=== PATIENT | female | born 1980 | race Caucasian/White ===

== ENCOUNTER 2020-06-16 10:07 | Inpatient (IN) | payer OTHER ==
[2020-06-16] MEDS ORDERED: SODIUM CHLORIDE 0.9% 500 ML INFUS.BAG IV ONE (10:28)
[2020-06-16 10:51] VITALS: BMI 23.0
[2020-06-16 11:00] LABS: BASO % 0.6 % (0-2.0); EOS % 0.9 % (0-4.5); HEMOGLOBIN 10.9 GM/dL (10.7-15.3); LYMPH % 10.1 % (8-40); MCH 30.7 pg (25.7-33.7); MCHC 34.2 g/dl (32.0-36.0); MEAN CELL VOLUME 89.8 fl (80-96); MEAN PLT VOLUME 8.3 fl (7.5-11.1); MONO % 4.3 % (3.8-10.2); NEUT % 84.1 % (42.8-82.8); PLATELET COUNT 289 K/MM3 (134-434); RBC 3.56 M/mm3 (3.60-5.2); RDW 12.7 % (11.6-15.6); WHITE BLOOD COUNT 14.9 K/mm3 (4.0-10.0)
[2020-06-16 11:05] LABS: INR 1.07 (0.83-1.09); PROTHROMBIN TIME (PATIENT) 13.1 SEC (9.7-13.0)
[2020-06-16 11:07] LABS: ACTIVATED PTT 26.2 SECONDS (25.2-36.5)
[2020-06-16 11:22] LABS: POTASSIUM 3.8 mmol/L (3.5-5.1)
[2020-06-16 11:24] LABS: CALCIUM 8.5 mg/dL (8.5-10.1)
[2020-06-16 11:25] LABS: ALBUMIN 3.5 g/dl (3.4-5.0); BLOOD UREA NITROGEN 11.3 mg/dL (7-18)
[2020-06-16 11:28] LABS: CREATININE 0.7 mg/dL (0.55-1.3)
[2020-06-16 11:30] LABS: BILIRUBIN,TOTAL 0.3 mg/dL (0.2-1)
[2020-06-16] MEDS ORDERED: KETOROLAC TROMETHAMINE 30 MG/1 ML VIAL IM ONE (12:08)
[2020-06-16] MEDS ORDERED: METHYLERGONOVINE MALEATE 0.2 MG/1 ML AMP IM ONE (12:30)
[2020-06-16] MEDS ORDERED: PROPOFOL 20 ML ONE (15:55)
[2020-06-16] MEDS ORDERED: MIDAZOLAM HCL 2 MG/2 ML SINGLE DOSE VIAL ONE (15:55)
[2020-06-16] MEDS ORDERED: LIDOCAINE HCL/PF 2% SDV 5ML VIAL ONE (15:56)
[2020-06-16] MEDS ORDERED: ROCURONIUM BROMIDE 50 MG/5 ML SYRINGE ONE (16:19)
[2020-06-16] MEDS ORDERED: ALBUTEROL SO4 0.083% IH SOL 2.5 MG/3 ML VIAL.NEB. NEB ONE ×2 (16:49)
[2020-06-16] MEDS ORDERED: ONDANSETRON 4 MG/2 ML VIAL IVPUSH PRN (16:49)
[2020-06-16] MEDS ORDERED: LACTATED RINGERS SOLUTION 1,000 ML IV SCH (17:00)
[2020-06-16 17:46] LABS: BASO % 0.7 % (0-2.0); EOS % 1.1 % (0-4.5); HEMATOCRIT 28.2 % (32.4-45.2); HEMOGLOBIN 9.4 GM/dL (10.7-15.3); LYMPH % 19.8 % (8-40); MCH 30.2 pg (25.7-33.7); MCHC 33.3 g/dl (32.0-36.0); MEAN CELL VOLUME 90.8 fl (80-96); MEAN PLT VOLUME 8.9 fl (7.5-11.1); NEUT % 72.4 % (42.8-82.8); PLATELET COUNT 257 K/MM3 (134-434); RBC 3.11 M/mm3 (3.60-5.2); RDW 12.7 % (11.6-15.6); WHITE BLOOD COUNT 10.5 K/mm3 (4.0-10.0)
[2020-06-16 19:05] VITALS: BP 118/58; PULSE 70; TEMP 98.1
== END 2020-06-16 18:45 | disposition home or self-care (01) | DRG 770 ==
LOC: JER 10:07 → JERBED 11:30 → J2C 18:41
PROVIDERS: ADMIT Internal Medicine; ATTEND Internal Medicine
PROC: 10D17ZZ Extraction of Products of Conception, Retained, Via Natural or Artificial Opening (ICD-10-PCS; principal; 2020-06-16 16:15)
DX: O03.4 Incomplete spontaneous abortion without complication (principal); F41.8 Other specified anxiety disorders; G25.81 Restless legs syndrome; M79.7 Fibromyalgia
CPT/HCPCS: 36415; 76817-TC; 80053; 84702; 85025; 85610; 85730; 86850; 86900; 86901; 86922; 88305-TC; 93005; 93010; 94760; 99291; C9803; U0003

== ENCOUNTER 2023-11-14 12:34 | Emergency (ER) | payer OTHER ==
[2023-11-14 12:52] VITALS: BP 147/82; PULSE 105; RESP 17; TEMP 98.1; BMI 19.7
[2023-11-14] MEDS ORDERED: AMOX TR/POT CLAV 875MG/125MG TABLETS (FP) ONE (12:59)
[2023-11-14] MEDS: AMOX TR/POT CLAV 875MG/125MG TABLETS (FP) PO ONE (13:00)
== END 2023-11-14 13:08 | disposition home or self-care (01) ==
LOC: FER 12:34
DX: R22.0 Localized swelling, mass and lump, head (principal); K04.7 Periapical abscess without sinus
CPT/HCPCS: 99283-25